=== PATIENT | female | born 1935 | race Caucasian/White ===

== ENCOUNTER 2019-04-18 08:01 | Inpatient (IN) | payer OTHER ==
[~2019-04-18] VITALS: Ht 170.2 cm; Wt 85.6 kg
[2019-04-18] MEDS ORDERED: IOVERSOL 350 MG/ML 100 ML VIAL ONE (08:14)
[2019-04-18] MEDS ORDERED: SODIUM CHLORIDE 0.9% 100 ML ONE (08:14)
[2019-04-18] MEDS ORDERED: ALLO100T PO (08:19)
[2019-04-18] MEDS ORDERED: LEVO50 PO (08:19)
[2019-04-18] MEDS ORDERED: RIVA1PAT9 TD (08:19)
[2019-04-18] MEDS ORDERED: INSLAN SQ (08:19)
[2019-04-18] MEDS ORDERED: INSU100V SQ (08:19)
[2019-04-18] MEDS ORDERED: MULT-248 PO (08:19)
[2019-04-18] MEDS ORDERED: METO25 PO (08:19)
[2019-04-18] MEDS ORDERED: MEMA10TA11 PO (08:19)
[2019-04-18] MEDS ORDERED: PRAV10TA39 PO (08:19)
[2019-04-18 08:28] LABS: BASOPHILS % (AUTO) 0.7 % (0.0-2.0); EOSINOPHILS % (AUTO) 0.1 % (1.0-6.0); HEMATOCRIT 39.9 % (36-46); HEMOGLOBIN 13.1 g/dL (12.0-16.0); LYMPHOCYTES # (AUTO) 1.5 K/uL (1.0-4.8); LYMPHOCYTES % (AUTO) 11.4 % (22.0-44.0); MEAN CORPUSCULAR HGB CONC 32.8 G/dL (31.0-37.0); MEAN CORPUSCULAR VOLUME 91 fL (80-100); MONOCYTES # (AUTO) 0.6 K/uL (0.1-1.0); MONOCYTES % (AUTO) 4.8 % (2.0-9.0); PLATELET COUNT (AUTO) 303 K/uL (150-450); RED BLOOD CELL COUNT(AUTO) 4.37 MIL/uL (4.00-5.20)
[2019-04-18 08:38] LABS: POTASSIUM 3.8 mmol/L (3.5-5.1); PROTHROMBIN TIME 10.4 SEC (9.4-11.6)
[2019-04-18 08:39] LABS: CALCIUM, TOTAL 9.8 mg/dL (8.8-10.5); CREATININE 1.35 mg/dL (0.60-1.30)
[2019-04-18 08:45] LABS: ALBUMIN 3.1 g/dL (3.4-5.0); BILIRUBIN,TOTAL 0.7 mg/dL (0.1-1.0); TOTAL PROTEIN, SERUM 7.9 g/dL (6.4-8.2)
[2019-04-18] MEDS ORDERED: ACETAMINOPHEN 1000 MG/ISO-OSM 100 ML IV ONE (08:45)
[2019-04-18] MEDS ORDERED: SODIUM CHLORIDE 0.9% 1,000 ML IV ONE ×2 (08:45→10:45)
[2019-04-18 10:00] LABS: APPEARANCE,URINE TURBID (CLEAR); BILIRUBIN,URINE NEGATIVE (NEGATIVE); GLUCOSE, URINE (UA) NEGATIVE (NEGATIVE); KETONES,URINE NEGATIVE (NEGATIVE); LEUKOCYTE ESTERASE ,URINE LARGE (NEGATIVE); NITRATE,URINE POSITIVE (NEGATIVE); OCCULT BLOOD,URINE MODERATE (NEGATIVE); PROTEIN,URINE SEE CONFIRM (NEGATIVE); UROBILINOGEN,URINE 0.2 mg/dL (<=1.0)
[2019-04-18 10:08] LABS: SULFOSALICYLIC ACID,URINE 1+ (Negative)
[2019-04-18 10:10] LABS: BACTERIA,URINE Moderate /HPF (None Seen); SQUAMOUS EPITHELIAL CELL,UR Few /LPF (None Seen); WBC,URINE >100 /HPF (0-5)
[2019-04-18] MEDS ORDERED: CefTRIAXone 1 GM/DEXTROSE 50 ML IV ONE (10:15)
[2019-04-18] MEDS ORDERED: ONDANSETRON HCL 4 MG/2 ML VIAL IVP PRN (10:45)
[2019-04-18] MEDS ORDERED: ACETAMINOPHEN 325 MG TABLET PO PRN (10:45)
[2019-04-18 14:14] VITALS: BP 135/72
[2019-04-18 20:17] VITALS: BP 141/61
[2019-04-18] MEDS: ACETAMINOPHEN 650 MG RECTAL SUPPOSITORY PR PRN (20:20)
[2019-04-19 00:21] VITALS: BP 120/56
[2019-04-19] MEDS ORDERED: BISACODYL 10 MG RECTAL RECTAL SUPPOSITORY PR PRN (00:30)
[2019-04-19] MEDS ORDERED: MORPHINE SULFATE 2 MG/ML SYRINGE IVP PRN (00:30)
[2019-04-19] MEDS ORDERED: ONDANSETRON HCL 4 MG/2 ML VIAL IVP PRN (00:30)
[2019-04-19] MEDS ORDERED: ALBUTEROL SULFATE 2.5 MG/0.5 ML NEB SOLUTION NEB PRN (00:30)
[2019-04-19] MEDS ORDERED: IPRATROPIUM BROMIDE 0.5 MG/2.5 ML NEB SOLUTION NEB PRN (00:30)
[2019-04-19] MEDS ORDERED: SODIUM CHLORIDE 0.9% 250 ML IV ONE (01:50)
[2019-04-19] MEDS: AZITHROMYCIN 500 MG/NS 250 ML IV SCH (01:54)
[2019-04-19 05:00] VITALS: BP 114/60
[2019-04-19 05:53] LABS: CHOL/HDL RATIO 4.6 (3.9-5.7)
[2019-04-19 07:32] VITALS: BP 128/70
[2019-04-19] MEDS: HEPARIN SODIUM,PORCINE 5,000 UNITS/ML VIAL SQ SCH ×2 (08:43→15:20)
[2019-04-19 11:11] VITALS: BP 110/75
[2019-04-19] MEDS: CefTRIAXone 1 GM/DEXTROSE 50 ML IV SCH (11:14)
[2019-04-19 11:39] LABS: GLUCOMETER DEV NAME(LOC) 5N.1; GLUCOSE,POINT OF CARE 183 MG/DL (70-110)
[2019-04-19 15:31] VITALS: BP 114/67
[2019-04-19] MEDS: ACETAMINOPHEN 650 MG RECTAL SUPPOSITORY PR PRN (15:32)
[2019-04-19] MEDS ORDERED: DEXTROSE 50%-WATER 25 GM/50 ML SYRINGE IVP PRN ×2 (16:00→18:00)
[2019-04-19] MEDS: INSULIN LISPRO 100 UNITS/ML SQ PRN ×2 (18:19→21:39)
[2019-04-19] MEDS ORDERED: HEPARIN SODIUM,PORCINE 5,000 UNITS/ML VIAL IVP ONE (18:45)
[2019-04-19] MEDS ORDERED: HEPARIN SODIUM,PORCINE 5,000 UNITS/ML VIAL IVP PRN ×2 (18:45)
[2019-04-19 19:28] LABS: BASOPHILS % (AUTO) 1.1 % (0.0-2.0); EOSINOPHILS % (AUTO) 0.9 % (1.0-6.0); HEMATOCRIT 35.9 % (36-46); HEMOGLOBIN 11.7 g/dL (12.0-16.0); LYMPHOCYTES # (AUTO) 2.1 K/uL (1.0-4.8); LYMPHOCYTES % (AUTO) 21.8 % (22.0-44.0); MEAN CORPUSCULAR HEMOGLOBIN 30.1 pg (26.0-34.0); MEAN CORPUSCULAR HGB CONC 32.6 G/dL (31.0-37.0); MEAN CORPUSCULAR VOLUME 92 fL (80-100); MONOCYTES # (AUTO) 0.6 K/uL (0.1-1.0); MONOCYTES % (AUTO) 6.4 % (2.0-9.0); NEUTROPHILS # (AUTO) 6.6 K/uL (1.8-7.7); NEUTROPHILS % (AUTO) 69.8 % (40.0-70.0); PLATELET COUNT (AUTO) 237 K/uL (150-450); RED BLOOD CELL COUNT(AUTO) 3.89 MIL/uL (4.00-5.20); RED CELL DISTRIBUTION WIDTH 13.9 % (11.5-14.5)
[2019-04-19 19:36] LABS: PROTHROMBIN TIME 10.7 SEC (9.4-11.6)
[2019-04-19 19:39] LABS: GLUCOMETER DEV NAME(LOC) 5S.1; GLUCOSE,POINT OF CARE 199 MG/DL (70-110)
[2019-04-19 19:53] VITALS: BP 132/72
[2019-04-19] MEDS: MEMANTINE HCL 10 MG TABLET PO SCH (21:33)
[2019-04-19] MEDS: METOPROLOL TARTRATE 25 MG TABLET PO SCH (21:33)
[2019-04-19] MEDS: INSULIN GLARGINE,HUM.REC.ANLOG 100 UNITS/ML SQ SCH (21:40)
[2019-04-19] MEDS: HEPARIN SODIUM 25000 UNITS/D5W 250 ML IV PRN (21:49)
[2019-04-20 00:23] VITALS: BP 101/72
[2019-04-20 00:39] LABS: GLUCOMETER DEV NAME(LOC) 5N.2; GLUCOSE,POINT OF CARE 180 MG/DL (70-110)
[2019-04-20] MEDS: AZITHROMYCIN 500 MG/NS 250 ML IV SCH (01:59)
[2019-04-20 04:13] VITALS: BP 126/65
[2019-04-20 05:30] LABS: BASOPHILS % (AUTO) 0.6 % (0.0-2.0); EOSINOPHILS % (AUTO) 3.5 % (1.0-6.0); HEMATOCRIT 35.9 % (36-46); HEMOGLOBIN 11.6 g/dL (12.0-16.0); LYMPHOCYTES # (AUTO) 1.9 K/uL (1.0-4.8); LYMPHOCYTES % (AUTO) 23.3 % (22.0-44.0); MEAN CORPUSCULAR HGB CONC 32.3 G/dL (31.0-37.0); MEAN CORPUSCULAR VOLUME 93 fL (80-100); MONOCYTES # (AUTO) 0.5 K/uL (0.1-1.0); MONOCYTES % (AUTO) 6.2 % (2.0-9.0); NEUTROPHILS # (AUTO) 5.3 K/uL (1.8-7.7); NEUTROPHILS % (AUTO) 66.4 % (40.0-70.0); PLATELET COUNT (AUTO) 232 K/uL (150-450); RED BLOOD CELL COUNT(AUTO) 3.87 MIL/uL (4.00-5.20); RED CELL DISTRIBUTION WIDTH 14.4 % (11.5-14.5)
[2019-04-20] MEDS: LEVOTHYROXINE SODIUM 50 MCG TABLET PO SCH (06:10)
[2019-04-20] MEDS: INSULIN LISPRO 100 UNITS/ML SQ PRN ×4 (06:36→21:27)
[2019-04-20 08:32] VITALS: BP 120/61
[2019-04-20] MEDS: METOPROLOL TARTRATE 25 MG TABLET PO SCH ×2 (08:42→21:25)
[2019-04-20] MEDS: MULTIVITAMINS WITH MINERALS, THERAPEUTIC TABLET PO SCH (08:42)
[2019-04-20] MEDS: PRAVASTATIN SODIUM 10 MG TABLET PO SCH (08:42)
[2019-04-20] MEDS: MEMANTINE HCL 10 MG TABLET PO SCH ×2 (08:42→21:25)
[2019-04-20] MEDS: ALLOPURINOL 100 MG TABLET PO SCH (08:42)
[2019-04-20] MEDS: RIVASTIGMINE 4.6 MG/24 HOUR PATCH TD SCH (08:42)
[2019-04-20] MEDS: DIGOXIN 250 MCG/ML 2 ML AMP IVP SCH (08:43)
[2019-04-20 10:44] LABS: GLUCOMETER DEV NAME(LOC) 5N.1; GLUCOSE,POINT OF CARE 170 MG/DL (70-110)
[2019-04-20 11:16] VITALS: BP 106/71
[2019-04-20] MEDS: CefTRIAXone 1 GM/DEXTROSE 50 ML IV SCH (11:50)
[2019-04-20 15:05] VITALS: BP 122/43
[2019-04-20] MEDS: CefoTEtan DISOD 1 GM/DEXTROSE 50 ML IV SCH (16:00)
[2019-04-20] MEDS: HEPARIN SODIUM 25000 UNITS/D5W 250 ML IV PRN (16:48)
[2019-04-20 19:41] VITALS: BP 147/50
[2019-04-20 20:09] LABS: GLUCOMETER DEV NAME(LOC) 5N.2; GLUCOSE,POINT OF CARE 162 MG/DL (70-110)
[2019-04-20 20:09] LABS: GLUCOMETER DEV NAME(LOC) 5N.2; GLUCOSE,POINT OF CARE 155 MG/DL (70-110)
[2019-04-20] MEDS: INSULIN GLARGINE,HUM.REC.ANLOG 100 UNITS/ML SQ SCH (21:27)
[2019-04-20 21:49] LABS: GLUCOMETER DEV NAME(LOC) 5S.1; GLUCOSE,POINT OF CARE 240 MG/DL (70-110)
[2019-04-21 00:01] VITALS: BP 127/76
[2019-04-21] MEDS: CefoTEtan DISOD 1 GM/DEXTROSE 50 ML IV SCH ×2 (03:16→16:11)
[2019-04-21 04:37] VITALS: BP 151/76
[2019-04-21] MEDS: LEVOTHYROXINE SODIUM 50 MCG TABLET PO SCH (06:08)
[2019-04-21] MEDS: INSULIN LISPRO 100 UNITS/ML SQ PRN ×4 (06:17→22:37)
[2019-04-21 08:33] VITALS: BP 151/76
[2019-04-21] MEDS: ALLOPURINOL 100 MG TABLET PO SCH (08:34)
[2019-04-21] MEDS: PRAVASTATIN SODIUM 10 MG TABLET PO SCH (08:34)
[2019-04-21] MEDS: METOPROLOL TARTRATE 25 MG TABLET PO SCH ×2 (08:35→21:47)
[2019-04-21] MEDS: MEMANTINE HCL 10 MG TABLET PO SCH ×2 (08:35→21:47)
[2019-04-21] MEDS: RIVASTIGMINE 4.6 MG/24 HOUR PATCH TD SCH (08:35)
[2019-04-21] MEDS: MULTIVITAMINS WITH MINERALS, THERAPEUTIC TABLET PO SCH (08:35)
[2019-04-21] MEDS: DIGOXIN 250 MCG/ML 2 ML AMP IVP SCH (08:36)
[2019-04-21 11:54] LABS: GLUCOMETER DEV NAME(LOC) 5N.2; GLUCOSE,POINT OF CARE 168 MG/DL (70-110)
[2019-04-21 12:15] VITALS: BP 149/68
[2019-04-21 15:25] LABS: CALCIUM, TOTAL 8.8 mg/dL (8.8-10.5); CREATININE 1.37 mg/dL (0.60-1.30); POTASSIUM 3.6 mmol/L (3.5-5.1)
[2019-04-21 15:26] LABS: BASOPHILS % (AUTO) 0.8 % (0.0-2.0); EOSINOPHILS % (AUTO) 4.9 % (1.0-6.0); HEMATOCRIT 37.2 % (36-46); LYMPHOCYTES # (AUTO) 0.9 K/uL (1.0-4.8); LYMPHOCYTES % (AUTO) 13.1 % (22.0-44.0); MEAN CORPUSCULAR HGB CONC 32.3 G/dL (31.0-37.0); MEAN CORPUSCULAR VOLUME 93 fL (80-100); MONOCYTES # (AUTO) 0.4 K/uL (0.1-1.0); NEUTROPHILS # (AUTO) 5.3 K/uL (1.8-7.7); NEUTROPHILS % (AUTO) 75.2 % (40.0-70.0); PLATELET COUNT (AUTO) 171 K/uL (150-450); RED BLOOD CELL COUNT(AUTO) 4.01 MIL/uL (4.00-5.20); RED CELL DISTRIBUTION WIDTH 13.8 % (11.5-14.5)
[2019-04-21 15:39] LABS: ALBUMIN 2.5 g/dL (3.4-5.0); BILIRUBIN,TOTAL 0.3 mg/dL (0.1-1.0); THYROID STIMULATING HORMONE 5.28 uIU/mL (0.36-3.74); TOTAL PROTEIN, SERUM 6.6 g/dL (6.4-8.2)
[2019-04-21 16:01] VITALS: BP 146/56
[2019-04-21 17:54] LABS: FREE T4 (FREE THYROXINE) 1.01 ng/dL (0.76-1.46)
[2019-04-21 19:50] LABS: GLUCOMETER DEV NAME(LOC) 5N.1; GLUCOSE,POINT OF CARE 216 MG/DL (70-110)
[2019-04-21] MEDS ORDERED: ATORVASTATIN CALCIUM 20 MG TABLET PO SCH (21:00)
[2019-04-21 21:16] VITALS: BP 138/65
[2019-04-21] MEDS: INSULIN GLARGINE,HUM.REC.ANLOG 100 UNITS/ML SQ SCH (22:50)
[2019-04-21 22:55] LABS: GLUCOMETER DEV NAME(LOC) 5S.1; GLUCOSE,POINT OF CARE 224 MG/DL (70-110)
[2019-04-21 22:55] LABS: GLUCOMETER DEV NAME(LOC) 5S.1; GLUCOSE,POINT OF CARE 268 MG/DL (70-110)
[2019-04-22 01:09] VITALS: BP 129/59
[2019-04-22] MEDS: CefoTEtan DISOD 1 GM/DEXTROSE 50 ML IV SCH (04:38)
[2019-04-22 05:12] VITALS: BP 137/58
[2019-04-22 05:56] LABS: ALBUMIN 2.3 g/dL (3.4-5.0); BILIRUBIN,TOTAL 0.3 mg/dL (0.1-1.0); CALCIUM, TOTAL 8.5 mg/dL (8.8-10.5); CREATININE 1.41 mg/dL (0.60-1.30); POTASSIUM 3.7 mmol/L (3.5-5.1); TOTAL PROTEIN, SERUM 6.1 g/dL (6.4-8.2)
[2019-04-22] MEDS: LEVOTHYROXINE SODIUM 50 MCG TABLET PO SCH (06:05)
[2019-04-22] MEDS: INSULIN LISPRO 100 UNITS/ML SQ PRN ×3 (06:07→18:15)
[2019-04-22 07:57] VITALS: BP 136/57
[2019-04-22] MEDS: MULTIVITAMINS WITH MINERALS, THERAPEUTIC TABLET PO SCH (08:49)
[2019-04-22] MEDS: METOPROLOL TARTRATE 25 MG TABLET PO SCH (08:50)
[2019-04-22] MEDS: MEMANTINE HCL 10 MG TABLET PO SCH (08:50)
[2019-04-22] MEDS: ALLOPURINOL 100 MG TABLET PO SCH (08:50)
[2019-04-22] MEDS: RIVASTIGMINE 4.6 MG/24 HOUR PATCH TD SCH (08:52)
[2019-04-22] MEDS ORDERED: ASPIRIN 325 MG TABLET PO SCH (09:00)
[2019-04-22] MEDS ORDERED: DIGOXIN 125 MCG TABLET PO SCH (09:00)
[2019-04-22 11:40] LABS: GLUCOMETER DEV NAME(LOC) 5N.2; GLUCOSE,POINT OF CARE 245 MG/DL (70-110)
[2019-04-22 11:44] VITALS: BP 151/75
[2019-04-22 15:47] VITALS: BP 147/53
[2019-04-22] MEDS ORDERED: ASPI81 PO (17:55)
[2019-04-22] MEDS ORDERED: DIGO-44 PO (17:57)
[2019-04-22] MEDS ORDERED: CEFO1I IV (18:08)
[2019-04-22 19:14] LABS: GLUCOMETER DEV NAME(LOC) 5S.1; GLUCOSE,POINT OF CARE 180 MG/DL (70-110)
[2019-04-22 19:14] LABS: GLUCOMETER DEV NAME(LOC) 5S.1; GLUCOSE,POINT OF CARE 202 MG/DL (70-110)
[2019-04-23] MEDS ORDERED: ASPIRIN 81 MG CHEWABLE TABLET PO SCH (09:00)
== END 2019-04-22 19:15 | DRG 64 ==
LOC: EMS 08:05 → 5S 12:51
PROVIDERS: ADMIT Hospitalist; ATTEND Hospitalist
DX: I63.9 Cerebral infarction, unspecified (principal); J69.0 Pneumonitis due to inhalation of food and vomit; E43 Unspecified severe protein-calorie malnutrition; N39.0 Urinary tract infection, site not specified; G93.40 Encephalopathy, unspecified; G81.91 Hemiplegia, unspecified affecting right dominant side; R65.10 Systemic inflammatory response syndrome (SIRS) of non-infectious origin without acute organ dysfunction; F03.90 Unspecified dementia, unspecified severity, without behavioral disturbance, psychotic disturbance, mood disturbance, and anxiety; I48.91 Unspecified atrial fibrillation; E03.9 Hypothyroidism, unspecified; E11.22 Type 2 diabetes mellitus with diabetic chronic kidney disease; R29.810 Facial weakness; I12.9 Hypertensive chronic kidney disease with stage 1 through stage 4 chronic kidney disease, or unspecified chronic kidney disease; N18.9 Chronic kidney disease, unspecified; Z66 Do not resuscitate; Z79.899 Other long term (current) drug therapy; Z68.29 Body mass index [BMI] 29.0-29.9, adult
CPT/HCPCS: 51702; 70496; 82948; 83036; 83605; 84439; 84443; 87081; 87086; 92610; 93005; 93306; 93880; 97162; 97166; 97530; 97535; 99291; G0378; J0131; J0456; J0696; J1160; J1644; J1815; J3490; J7030; J7050